=== PATIENT | male | born 1980 | race Caucasian/White ===

== ENCOUNTER 2016-08-07 20:48 | Emergency (ER) | payer OTHER ==
--- NOTE | 2016-08-07 21:14 | ED CLINICAL REPORT ---
Clinical Report - Physicians/Mid Levels [facility] [address] [place] [address] 08/07/2016 20:51 Patient: ERIN MELARA Time Seen: 2057; upon arrival, initial patient contact, initial documentation, patient care assumed. Arrived- By private vehicle. Historian- patient. HISTORY OF PRESENT ILLNESS Chief Complaint: Injury to the right thumb. The injury happened today. The patient sustained a laceration from a sharp edge (sheet metal). Occurred at work. Patient is not experiencing pain. Patient denies injury to the head or neck. No other injury. ( pt had steri strips in place, no active bleeding, intact strips, removed for exam). REVIEW OF SYSTEMS The patient sustained a laceration. No swelling, tingling, numbness, weakness or foreign body. All systems otherwise negative, except as recorded above. PAST HISTORY See nurses notes. Dental Abscess. --21:00 Santana Mcdonald R.N. ADDITIONAL SURGERIES: Dental Surgery. --21:00 Santana Mcdonald R.N. The patient's dominant hand is the right. Tetanus immunization status is up-to-date. SOCIAL HISTORY Light tobacco smoker. Occasional alcohol use. No drug use. No recent travel. Is a local resident. FAMILY HISTORY No significant family medical history. ADDITIONAL NOTES The nursing notes have been reviewed with agreement regarding the chief complaint, HPI, ROS, PMH and patient medications and allergies. PHYSICAL EXAM Vital Signs: 08/07/2016 20:54 BP: 128/82. HR: 71. RR: 18. O2 saturation: 94%. Temp: 97.6 F. Pain level now: 04/07. Have been reviewed as normal and appear to be correct. Appearance: Alert. Oriented X3. No acute distress. (strong etoh breath). Head: Head atraumatic. Eyes: Pupils equal, round and reactive to light. Eyes normal inspection. Respiratory: No respiratory distress. Skin: Skin warm and dry. Skin intact. Extremities: Hand injury present. Tip of right thumb: superficial 1.0 cm laceration; (superficial lac, no active bleeding, no closure needed). No erythema, tenderness, swelling, puncture wound or foreign body. No subungual hematoma, nail avulsion, exposed bone or loss of the nail bed on the right thumb or tip amputation of the right thumb. No wrist injury. Hand and wrist exam otherwise negative. Extremities otherwise negative. Neuro, Vascular and Tendons: Vascular status intact. Sensation intact. Motor intact. Tendon function intact. Neuro: Oriented X 3. No motor deficit. No sensory deficit. Note: isolated injury to thumb. PROGRESS AND PROCEDURES Patient counseled in person regarding the patient's stable condition and diagnosis. Differential Diagnosis: Other possible considerations: thumb lac, fb, skin avulsion. Above considerations are based on history and physical exam. Differential diagnosis was discussed with patient. Disposition: Discharged home in good and improved condition (21:14). Condition: good and stable. CLINICAL IMPRESSION Single superficial laceration to the right thumb. Delayed treatment.No infection, foreign body present or right fingernail injury. INSTRUCTIONS Protect wound and keep wound area clean. Soak in warm soapy water twice daily. Apply neosporin twice daily. Warnings: GENERAL WARNINGS: Return or contact your physician immediately if your condition worsens or changes unexpectedly, if not improving as expected, or if other problems arise. Specifically return if problem worsens. Follow-up: Follow up with your doctor in about three days as needed and for wound check. Call for an appointment. Summary of care provided to patient. Understanding of the discharge instructions verbalized by patient. (Electronically signed by Billie Dhaliwal A.R.N.P. 08/07/2016 22:06)
--- NOTE | 2016-08-07 21:14 | ED NURSING NOTES ---
Clinical Report - Nurses [facility] [address] [place] [address] 08/07/2016 20:51 Patient: ERIN MELARA TRIAGE Triage time 20:58. Acuity: LEVEL 4. Chief Complaint: INJURY TO THE RIGHT THUMB (laceration). Alert. EVON COMA SCORE: Evon Coma Scale: 15- eyes open spontaneously (4); best verbal response- oriented x 4 (5); best motor response- obeys commands (6). --21:03 Santana Mcdonald R.N. 20:54 08/07/16. BP: 128/82. HR: 71. RR: 18 (regular and unlabored). O2 saturation: 94% on room air. Temp: 97.6 F (oral). Pain level now: 04/07. --21:03 Santana Mcdonald R.N. Weight: 81.6 kg stated. Height/Length: 74 inches Per Patient. BMI: 23.1. --20:57 Santana Mcdonald R.N. Medications None. --21:00 Santana Mcdonald R.N. Allergies No Known Drug Allergy. --21:00 Santana Mcdonald R.N. History Arrived by private vehicle. Historian: patient. Unaccompanied. This occurred (0730 today). He sustained a laceration. ( pt states that he cut his thumb on galvanized sheet metal this morning. lac to right thumb, >1 inch in length). PAST MEDICAL HX: Tetanus status: up-to-date. SOCIAL HX: Smoker- current status unknown (cigarette). Occasional alcohol use. No drug use. SELF HARM ASSESSMENT: A self harm assessment was performed. The patient answered "no" to the question "Do you have thoughts of harming or killing yourself?" and "Are you here because you tried to hurt yourself?". FALL RISK ASSESSMENT: Fall risk assessment completed. No fall risk identified. NUTRITIONAL RISK ASSESSMENT: The nutritional risk assessment revealed no deficiencies. FUNCTIONAL ASSESSMENT: Functional assessment: no impairments noted. LEARNING NEEDS ASSESSMENT: The learning needs assessment revealed no barriers. --21:03 Santana Mcdonald R.N. PROBLEMS: Dental Abscess. --21:00 Santana Mcdonald R.N. ADDITIONAL SURGERIES: Dental Surgery. --21:00 Santana Mcdonald R.N. Interventions ID band on patient. To treatment room. --21:03 Santana Mcdonald R.N. PHYSICAL ASSESSMENT Ambulatory to room. GENERAL / NEURO / PSYCH: Oriented X 4. Alert. Appears in no acute distress. SKIN: Skin is warm and dry. Skin not intact. --21:03 Santana Mcdonald R.N. NURSING PROGRESS NOTES Two patient identifiers checked. Call light placed in reach. Side rails up x 1. Bed placed in lowest position. Brakes of bed on. Patient ready for evaluation- chart flagged. Patient waiting for evaluation. --21:04 Santana Mcdonald R.N. ( right thumb cleansed, steri-strips applied, patient declined having bandages applied to thumb and states "I got it, I do this all the time." Gauze given to patient for later application.). --21:33 Santana Mcdonald R.N. ( No bleeding currently.). --21:33 Santana Mcdonald R.N. DISPOSITION / DISCHARGE Departure time: 21:34. Condition at departure: stable. No learning barriers present. Discharge instructions provided and reviewed with the patient. Reviewed warnings. Treatments reviewed. Reviewed referrals for followup. Patient verbalized understanding. Written instructions provided in Portuguese. The patient was discharged home, accompanied by spouse and unaccompanied at time of discharge. He left the Emergency Department ambulatory and via private vehicle. Driving (unknown). --21:34 Santana Mcdonald R.N. 20:54 08/07/16. BP: 128/82. HR: 71. RR: 18 (regular and unlabored). O2 saturation: 94% on room air. Temp: 97.6 F (oral). Pain level now: 04/07. --21:34 Santana Mcdonald R.N. Locked/Released at 08/07/2016 21:34 by Santana Mcdonald R.N.
--- NOTE | 2016-08-07 22:07 | ED MED RECONCILIATION SUMMARY ---
Patient: ERIN MELARA Medication Reconciliation Report [facility] VisitID: [id number] [address] [place] [address] 35y, M Registration Date/Time: 08/07/2016 Weight: 81.6 kg Height/Length: 74 in. BMI: 23.1 ALLERGIES: No Known Drug Allergy The patient's Home Medications are listed below: NONE. The source(s) of the original Home Medication information: Not obtained. The following Medications were given to the patient in the Emergency Department: None. The following Medications were prescribed to the patient: None.
--- NOTE | 2016-08-07 22:07 | ED DISCHARGE INSTRUCTIONS ---
Patient: ERIN MELARA General Instructions [facility] VisitID: [id number] [place] [address] 35y, M Registration Date/Time: 08/07/2016 Single superficial laceration to the right thumb. Delayed treatment.No infection, foreign body present or right fingernail injury. INSTRUCTIONS Protect wound and keep wound area clean. Soak in warm soapy water twice daily. Apply neosporin twice daily. Warnings: GENERAL WARNINGS: Return or contact your physician immediately if your condition worsens or changes unexpectedly, if not improving as expected, or if other problems arise. Specifically return if problem worsens. Follow-up: Follow up with your doctor in about three days as needed and for wound check. Call for an appointment. Summary of care provided to patient. Understanding of the discharge instructions verbalized by patient. ADDITIONAL INFORMATION Laceration (All Closures) Alaceration is a cut through the skin. This will usually require stitches (sutures) or jeanne if it is deep. Minor cuts may be treated with a surgical tape closure orskin glue. Home care The following guidelines will help you care for your laceration at home: Extremity, face, or trunk wounds Keep the wound clean and dry. If a bandage was applied and it becomes wet or dirty, replace it. Otherwise, leave it in place for the first 24 hours. If stitches or jeanne were used, clean the wound daily. After removing the bandage, wash the area with soap and water. Use a wet cotton swab to loosen and remove any blood or crust that forms. The doctor may prescribe an antibiotic cream or ointment to prevent infection. Do not stop taking this medication until you have finished the prescribed course or the doctor tells you to stop. The doctor may also prescribe medications for pain. Follow the doctors instructions for taking these medications. You may remove the bandage to shower as usual after the first 24 hours, but do not soak the area in water (no swimming) until the stitches or jeanne are removed. If surgical tape was used, keep the area clean and dry. If it becomes wet, blot it dry with a towel. If skin glue was used, do not scratch, rub, or pick at the adhesive film. Do not place tape directly over the film. Do not apply liquid, ointment, or creams to the wound while the film is in place. Do not clean the wound with peroxide and do not apply ointments. Avoid activities that cause heavy sweating until the film has fallen off. Protect the wound from prolonged exposure to sunlight or tanning lamps. You may shower as usual but do not soak the wound in water (no baths or swimming). The film will fall off by itself in 510 days. Scalp wounds During the first two days, you may carefully rinse your hair in the shower to remove blood, glass or dirt particles. After two days, you may shower and shampoo your hair normally. Do not soak your scalp in the tub or go swimming until the stitches or jeanne have been removed. Talk with your doctor before applying any antibiotic ointment to the wound. Mouth wounds Eat soft foods to reduce pain. If the cut is inside of your mouth, clean by rinsing after each meal and at bedtime with a mixture of equal parts water and hydrogen peroxide (do not swallow!). Or, you can use a cotton swab to directly apply hydrogen peroxide onto the cut. Mouth wounds can be painful when eating. You may use an [id number] local numbing solution for pain relief. If this is not available, you may use any numbing solution for teething babies. You may apply this directly to the sores with a cotton-tip swab or with your finger. Follow-up care Follow up with your health care provider. Most skin wounds heal within ten days. Mouth and facial wounds heal within five days. However, even with proper treatment, a wound infection may sometimes occur. Therefore, you should check the wound daily for signs of infection listed below. Stitches should be removed from the face within five days; stitches and jeanne should be removed from other parts of the body within 714 days. If dissolving stitches were used in the mouth, these will fall out or dissolve without the need for removal. If tape closures were used, remove them yourself if they have not fallen off after 7 days. Ifskin glue was used, the film will fall off by itself in 510 days. When to seek medical care Get prompt medical attention if any of these occur: Bleeding not controlled by direct pressure Signs of infection, including increasing pain in the wound, increasing wound redness or swelling, or pus coming from the wound Fever of 100.4F (38C) or higher, or as directed by your health care provider Stitches or jeanne come apart or fall out or surgical tape falls off before 7 days Wound edges re-open Laceration, Extremity (Sutures, Cougar, Or Tape) A laceration is a cut through the skin. This will usually require stitches (sutures) or jeanne if it is deep. Minor cuts may be treated with surgical tape closures. Home care The following guidelines will help you care for your laceration at home: Keep the wound clean and dry. If a bandage was applied and it becomes wet or dirty, replace it. Otherwise, leave it in place for the first 24 hours, then change it once a day or as directed. If stitches or jeanne were used, clean the wound daily: After removing the bandage, wash the area with soap and water. Use a wet cotton swab to loosen and remove any blood or crust that forms. After cleaning, keep the wound clean and dry. Talk with your doctor before applying any antibiotic ointment to the wound. Reapply the bandage. You may remove the bandage to shower as usual after the first 24 hours, but do not soak the area in water (no swimming) until the stitches or jeanne are removed. If surgical tape closures were used, keep the area clean and dry. If it becomes wet, blot it dry with a towel. The doctor may prescribe an antibiotic cream or ointment to prevent infection. Do not stop taking this medication until you have finished the prescribed course or the doctor tells you to stop. The doctor may also prescribe medications for pain. Follow the doctors instructions for taking these medications. If you have chronic liver or kidney disease or ever had a stomach ulcer or GI bleeding, talk with your doctor before using these medicines. Follow-up care Follow up with your health care provider. Most skin wounds heal within ten days. However, an infection may sometimes occur despite proper treatment. Therefore, check the wound daily for the signs of infection listed below. Stitches and jeanne should be removed within 714 days. If surgical tape closures were used, you may remove them after 10 days, if they have not fallen off by then. Notify your doctor if you notice persistent numbness or weakness in the injured extremity. (Note:A radiologist will review any X-rays that were taken. We will notify you of any new findings that may affect your care.) When to seek medical care Get prompt medical attention if any of these occur: Increasing pain in the wound Redness, swelling, or pus coming from the wound Fever of 100.4F (38C) or higher, or as directed by your health care provider If stitches or jeanne come apart or fall out before your next appointment If the surgical tape closures fall off within seven days, or the wound edges re-open Bleeding not controlled by direct pressure You have been given the following additional information: Laceration, All Laceration, Extrem (Suture, Staple, Or Tape) (Electronically signed by Billie Dhaliwal A.R.N.P. 08/07/2016 22:06)
--- NOTE | 2016-08-07 22:07 | ED MAR SUMMARY ---
..... Medication Administration Record [facility] [address] [place] [address] Patient: ERIN MELARA Visit ID: [id number] 35y, M Weight: 81.6 kg Height/Length: 74 in BMI: 23.1 ALLERGIES: No Known Drug Allergy
--- NOTE | 2016-08-07 22:07 | ED MAR SUMMARY ---
..... Medication Administration Record [facility] [address] [place] [address] Patient: ERIN MELARA Visit ID: [id number] 35y, M Weight: 81.6 kg Height/Length: 74 in BMI: 23.1 ALLERGIES: No Known Drug Allergy
--- NOTE | 2016-08-07 22:07 | ED MED RECONCILIATION SUMMARY ---
Patient: ERIN MELARA Medication Reconciliation Report [facility] VisitID: [id number] [address] [place] [address] 35y, M Registration Date/Time: 08/07/2016 Weight: 81.6 kg Height/Length: 74 in. BMI: 23.1 ALLERGIES: No Known Drug Allergy The patient's Home Medications are listed below: NONE. The source(s) of the original Home Medication information: Not obtained. The following Medications were given to the patient in the Emergency Department: None. The following Medications were prescribed to the patient: None.
== END 2016-08-07 21:35 | disposition home or self-care (01) ==
LOC: ED SRH 20:48
DX: S61.011A Laceration without foreign body of right thumb without damage to nail, initial encounter (principal); W26.8XXA Contact with other sharp object(s), not elsewhere classified, initial encounter; Y93.9 Activity, unspecified; Y92.89 Other specified places as the place of occurrence of the external cause; Y99.0 Civilian activity done for income or pay